=== PATIENT | female | born 1965 | race Caucasian/White ===

== ENCOUNTER 2021-06-05 10:51 | Emergency (ER) | payer OTHER ==
[2021-06-06 15:08] LABS: SARS-CoV-2 NAA Not Detected (Not Detected)
== END 2021-06-05 11:30 | disposition home or self-care (01) ==
LOC: JVIRT 10:51
DX: Z11.52 Encounter for screening for COVID-19 (principal)
CPT/HCPCS: C9803; Q3014-GT; U0003; U0005